=== PATIENT | male | born 1955 | race Two or more races ===

== ENCOUNTER 2024-03-27 21:42 | Emergency (ER) | payer BC ==
[~2024-03-27] VITALS: Ht 175.3 cm; Wt 75.3 kg
[2024-03-27] MEDS ORDERED: levETIRAcetam 500 MG/5 ML VIAL IV ONE (23:04)
[2024-03-27] MEDS: levETIRAcetam IV 500 MG in IV DEXTROSE 5% 100 ML IV ONE (23:10)
[2024-03-27 23:17] LABS: BASOPHILS # (AUTO) 0.1 K/UL (0.0-0.2); EOSINOPHILS # (AUTO) 0.1 K/uL (0.0-0.7); EOSINOPHILS % (AUTO) 1.3 % (0.0-7.0); HEMATOCRIT 53.5 % (36.7-47.1); HEMOGLOBIN 17.7 g/dL (12.5-16.3); LYMPHOCYTES # (AUTO) 0.7 K/uL (0.8-4.8); LYMPHOCYTES % (AUTO) 9.2 % (20.5-51.5); MEAN CORPUSCULAR HEMOGLOBIN 30.6 uug (23.8-33.4); MEAN CORPUSCULAR HGB CONC 33 g/dL (32.5-36.3); MEAN CORPUSCULAR VOLUME 92.2 fL (73.0-96.2); MONOCYTES # (AUTO) 0.2 K/uL (0.1-1.30); MONOCYTES % (AUTO) 2.7 % (0.0-11.0); NEUTROPHILS # (AUTO) 6.3 K/uL (1.8-8.9); NEUTROPHILS % (AUTO) 85.8 % (38.5-71.5); PLATELET COUNT (AUTO) 121 K/uL (152-348); RED CELL DISTRIBUTION WIDTH 19.1 % (12.1-16.2); WHITE BLOOD COUNT (AUTO) 7.4 K/uL (3.6-10.2)
[2024-03-27 23:21] LABS: DIFFERENTIAL COMMENT 1
[2024-03-27 23:25] LABS: CALCIUM 9.2 mg/dL (8.5-10.1); CREATININE 1.6 mg/dL (0.6-1.3); POTASSIUM 4.2 mmol/L (3.5-5.1)
[2024-03-27 23:31] LABS: ALBUMIN 3.8 g/dL (3.4-5.0); BILIRUBIN,DIRECT 0.2 mg/dL (0.0-0.2); BILIRUBIN,TOTAL 0.7 mg/dL (0.2-1.0); TOTAL PROTEIN, SERUM 6.9 g/dL (6.4-8.2)
[2024-03-27] MEDS ORDERED: ACETAMINOPHEN 500 MG TABLET ONE (23:48)
[2024-03-27] MEDS ORDERED: LORAZEPAM 0.5 MG TABLET ONE (23:49)
[2024-03-27] MEDS: ACETAMINOPHEN 500 MG TABLET PO ONE (23:52)
[2024-03-27] MEDS: LORAZEPAM 0.5 MG TABLET PO ONE (23:52)
[2024-03-28] MEDS: IV LACTATED RINGERS SOLUTION 1,000 ML BAG IV ONE (00:40)
[2024-03-28] MEDS ORDERED: LEVE500T9 PO (01:43)
[2024-03-28 02:12] VITALS: BP 125/84; O2SAT 98
== END 2024-03-28 02:13 | disposition home or self-care (01) ==
LOC: ER 21:44
DX: R56.9 Unspecified convulsions (principal); E86.0 Dehydration; D75.1 Secondary polycythemia; Z86.73 Personal history of transient ischemic attack (TIA), and cerebral infarction without residual deficits; Z98.890 Other specified postprocedural states; Z79.899 Other long term (current) drug therapy
CPT/HCPCS: 99285; 96365; 70450; 80076; 80048; 82962; 85025; 36415 ×2; 93005; 96361; 82668; J1953 ×2; J7120; A4606; A4663; A9150